=== PATIENT | male | born 1980 | race Hispanic/Latino ===

== ENCOUNTER 2019-01-26 20:47 | Emergency (ER) | payer SELFPAY ==
[2019-01-26 20:47] VITALS: BMI 24.2
[2019-01-26 21:12] VITALS: RESP 16
[2019-01-26] MEDS ORDERED: Lidocaine 1% (10 ml) Inj INFIL STA (21:54)
[2019-01-26] MEDS ORDERED: Tdap Vaccine 0.5 ml Vial (10-64 yrs) IM ONE ×2 (21:55→22:30)
[2019-01-26] MEDS ORDERED: ceFAZolin 1 GM in Sodium Chloride 0.9% 100 ML IVPB ONE (22:26)
--- NOTE | 2019-01-26 22:29 | ED PDOC ---
Upper Extremity Pain/Injury Time Seen by Provider: 01/26/19 21:28 Chief Complaint (Nursing): Finger,Hand,&Wrist Chief Complaint (Provider): FB, left 4th digit History Per: Patient History/Exam Limitations: no limitations Onset/Duration Of Symptoms: Mins (30) Current Symptoms Are (Timing): Still Present Additional Complaint(s): 39 yo male with HTN presents for evaluation FB in left ring finger. PT states he was cleaning shoes when a piece of the metal wire went into the finger. Localized pain, no bleeding. Tetanus UTD. Past Medical History Reviewed: Historical Data, Nursing Documentation, Vital Signs Vital Signs: Last Vital Signs Temp 98.2 F 01/26/19 21:08 Pulse 70 01/26/19 21:08 Resp 16 01/26/19 21:08 BP 122/81 01/26/19 21:08 Pulse Ox 96 01/26/19 21:08 Primary Care Provider: Procedure,Nonphys - Medical History PMH: HTN, Chronic Kidney Disease Denies: Kidney Stones - Surgical History Surgical History: No Surg Hx - Family History Family History: States: No Known Family Hx - Living Arrangements Living Arrangements: With Family - Home Medications Home Medications: Ambulatory Orders Medication Instructions Recorded Calcitriol [Rocaltrol] 0.25 mcg PO DAILY #0 sgl 12/17/14 Carvedilol [Coreg] 3.125 mg PO Q12 #0 tab 12/17/14 Ergocalciferol [Drisdol 50,000 50,000 intlu PO Q7D #0 cap 12/17/14 Intl Units Cap] Vitamin B Complex/Vit C/Folic 1 tab PO DAILY #0 tab 12/17/14 [Nephro-Reece] amLODIPine [Norvasc] 5 mg PO DAILY #0 tab 12/17/14 Amoxicillin/Clavulanate [Augmentin 1 tab PO BID #20 tab 01/27/19 875 MG-125 MG] - Allergies Allergies/Adverse Reactions: Allergies Allergy/AdvReac Type Severity Reaction Status Date / Time No Known Allergies Allergy Verified 12/12/14 11:08 Review of Systems ROS Statement: Except As Marked, All Systems Reviewed And Found Negative Constitutional: Negative for: Fever, Chills Musculoskeletal: Positive for: Other Skin: Positive for: Other Physical Exam - Reviewed Nursing Documentation Reviewed: Yes Vital Signs Reviewed: Yes - Physical Exam Appears: Positive for: Well, Non-toxic, No Acute Distress Head Exam: Positive for: ATRAUMATIC, NORMAL INSPECTION, NORMOCEPHALIC Skin: Positive for: Normal Color, Warm, DRY Eye Exam: Positive for: Normal appearance ENT: Positive for: Normal ENT Inspection Neck: Positive for: Normal Cardiovascular/Chest: Negative for: Bradycardia, Tachycardia Respiratory: Negative for: Accessory Muscle Use, Respiratory Distress Back: Positive for: Normal Inspection Extremity: Positive for: Normal ROM, Other ((+) FB palpated posterior left, 4th digit, verticle ). Negative for: Tenderness Neurological/Psych: Positive for: Awake, Alert, Normal Tone - ECG O2 Sat by Pulse Oximetry: 96 Medical Decision Making Medical Decision Making: IV ancef in ER. XR without any additional fB Disposition - Clinical Impression Clinical Impression: Foreign body in soft tissue, Tetanus toxoid vaccination administered at current visit - Patient ED Disposition Is Patient to be Admitted: No Counseled Patient/Family Regarding: Diagnosis, Need For Followup, Rx Given - Disposition Disposition: Routine/Home Disposition Time: 00:31 Condition: GOOD Prescriptions: Amoxicillin/Clavulanate [Augmentin 875 MG-125 MG] 1 tab PO BID #20 tab Instructions: Foreign Body in Skin (DC) Forms: Application [employer] (Danish) Print Language: NEPALI
[2019-01-27] MEDS ORDERED: Tdap Vaccine 0.5 ml Vial (10-64 yrs) IM ONE ×2 (00:36→00:45)
[2019-01-27 00:54] VITALS: BP 131/77; PULSE 78; TEMP 98; O2SAT 98
--- NOTE | 2019-01-27 08:26 | RAD ---
Date of service: 01/26/2019 PROCEDURE: Left ring finger radiographs. HISTORY: hand FB, already removed COMPARISON: None. TECHNIQUE: AP radiograph of the left hand, as well as spot oblique and lateral images of index finger were obtained. 4 views obtained. FINDINGS: LEFT RING FINGER: Left 4th ring finger normal, without fracture of focal lesion. The 5th digit pinky is abnormal. The middle and distal phalanges are ulnarly dislocated/subluxed relative to the proximal phalanx here. Details here somewhat limited due to overlapping of osseous structures here on multiple additional views. Slight deformity 5th metacarpal distal metaphysis-old healed fracture deformity here inferred. Possible tiny regional osseous fracture fragments ulnar aspect not excluded at the dislocated site. Ulnar aspect probable sesamoid bone. Correlate clinically. History states prior foreign body removed. No radiopaque foreign body at this level noted. Bracelet present proximally at wrist JOINTS: Normal. SOFT TISSUES: Normal. OTHER FINDINGS: None. IMPRESSION: Subluxations/partial dislocation 5th proximal interphalangeal joint-as above-acute definitive fractures difficult to assess and/or confirm tiny ossific debris osseous avulsed fracture fragments cannot be excluded. Old remote healed fracture deformity 5th metacarpal.
== END 2019-01-27 00:54 | disposition home or self-care (01) ==
LOC: H.ER 20:47
DX: S60.454A Superficial foreign body of right ring finger, initial encounter (principal); X58.XXXA Exposure to other specified factors, initial encounter; Y92.89 Other specified places as the place of occurrence of the external cause; I12.9 Hypertensive chronic kidney disease with stage 1 through stage 4 chronic kidney disease, or unspecified chronic kidney disease
CPT/HCPCS: 73140; 90471; 90715; 96365; 99283; J0690